=== PATIENT | male | born 1990 | race Caucasian/White ===

== ENCOUNTER 2016-07-30 01:22 | Emergency (ER) | payer MEDICAID, OTHER ==
[~2016-07-30] VITALS: Ht 182.9 cm; Wt 115.0 kg
[~2016-07-30 01:22] MED LIST: CEPH-443; DOXY100C47; LEXAPRO; PSYCH MED; SULF-151
[2016-07-30 01:25] VITALS: Ht 182.9 cm; Wt 115.0 kg
--- NOTE | 2016-07-30 02:01 | ERD ---
ER Documentation Chief Complaint Date/Time DATE: 07/30/16 TIME: 01:57 Chief Complaint cough x 4 days HPI 26-year-old male presents here in emergency department for complaints of cough for 4 days, patient has been having dry cough, does not cough up any phlegm or blood. Patient does not have any shortness of breath or wheezing. Patient did not take any medications to help with symptoms. Patient's family member was sick with the same symptoms. ROS All systems reviewed and are negative except as per history of present illness. Medications Home Meds Reported Medications Doxycycline Hyclate (Doryx) 100 Mg Capsule. 03/20/10 Cephalexin* (Keflex*) 500 Mg Capsule 03/10/10 Sulfamethoxazole/Trimethoprim (Sulfamethoxazole Tmp Ds Tab) 1 Tab Tablet 03/10/10 [Psych Med] No Conflict Check 03/07/10 [Lexapro] No Conflict Check 03/07/10 Allergies Allergies: Coded Allergies: No Known Allergies (Verified Allergy, Mild, 03/20/10) No Known Allergy (Verified Allergy, Mild, 03/20/10) PMhx/Soc Medical and Surgical Hx: pt denies Surgical Hx History of Surgery: No Anesthesia Reaction: No Hx Neurological Disorder: No Hx Respiratory Disorders: No Hx Cardiac Disorders: No Hx Psychiatric Problems: No Hx Miscellaneous Medical Probl: Yes (AUTISM) Hx Alcohol Use: No Hx Substance Use: No Hx Tobacco Use: No Smoking Status: Never smoker FmHx Family History: No coronary disease, No diabetes, No other Physical Exam Vitals Vital Signs Date Time Temp Pulse Resp B/P Pulse Ox O2 Delivery O2 Flow Rate FiO2 07/30/16 01:25 98.2 97 20 136/96 97 Physical Exam GENERAL: The patient is well developed and appropriate for usual state of health, in no apparent distress. CHEST: Clear to auscultation bilaterally. There are no rales, wheezes or rhonchi. HEART: Regular rate and rhythm. No murmurs, clicks, rubs or gallops. No S3 or S4. ABDOMEN: Soft, nontender and nondistended. Good bowel sounds. No rebound or guarding. No gross peritonitis. No gross organomegaly or masses. No Gibson sign or McBurney point tenderness. BACK: No midline or flank tenderness. EXTREMITIES: Equal pulses bilaterally. There is no peripheral clubbing, cyanosis or edema. No focal swelling or erythema. Full range of motion. Grossly neurovascularly intact. NEURO: Alert and oriented. Cranial nerves 2-12 intact. Motor strength in all 4 extremities with 5/5 strength. Sensation grossly intact. Normal speech and gait. SKIN: There is no apparent rash or petechia. The skin is warm and dry. HEMATOLOGIC AND LYMPHATIC: There is no evidence of excessive bruising or lymphedema. No gross cervical, axillary, or inguinal lymphadenopathy. Results 24 hrs PROCEDURE: XR Chest. CLINICAL INDICATION: Cough TECHNIQUE: Portable single view of the chest COMPARISON: None. FINDINGS: Shallow lung inflation accentuates the heart size which does appear slightly enlarged. Pulmonary vascularity is top normal. No definite acute infiltrate, pleural effusion, or overt congestive heart failure. No bony abnormality is seen. IMPRESSION: No definite acute infiltrate. Possible cardiomegaly. Follow-up PA and lateral views are suggested. RPTAT: [facility] Physician Rosalinda Date Time Electronically viewed and signed by Tamika Kaufman Physician on 07/30/2016 03 :16 LE/ CC: KALPESH STARR [employer] Procedures/MDM Medical Decision Making: Patient symptoms are most likely consistent with acute bronchitis, which viral in origin. There is low suspicion for Pneumonia at this time since patients lungs sounds are clear, patient O2 saturation is normal and patient doesnt show any respiratory distress. Patients chest xray doesnt show infiltrates or any other cardiopulmonary emergencies at this time. There is low suspicion for other cardiopulmonary emergencies at this time such as CHF, Pulmonary Embolism, Pneumothorax, Aortic Aneurysm or any other cardiopulmonary emergencies at this time. There is low suspicion for sepsis. Patient appears well and is hemodynamically stable. Fever is controlled with medicines. Disposition: Home. Condition: Stable Prescriptions: Albuterol, guaifenesin DM Zyrtec ibuprofen Instructions: Patient is advised to take medications as prescribed. Patient is advised to rest. Patient advised to increase fluid intake, do humidifier at home and if possible, do salt water gargles. Patient is advised that if symptoms are worse, shortness of breath, uncontrolled fever, stridor, vomiting, worst signs and symptoms to return to emergency department immediately. Otherwise, patient is advised to follow up with primary doctor in 5-7 days. Departure Diagnosis: Primary Impression: Acute bronchitis Bronchitis organism: unspecified organism Qualified Code: J20.9 - Acute bronchitis, unspecified organism Condition: Stable Patient Instructions: Bronchitis, No Antibiotic (Adult) Additional Instructions: Patient is advised to take medications as prescribed. Patient is advised to rest. Patient advised to increase fluid intake, do humidifier at home and if possible, do salt water gargles. Patient is advised that if symptoms are worse, shortness of breath, uncontrolled fever, stridor, vomiting, worst signs and symptoms to return to emergency department immediately. Otherwise, patient is advised to follow up with primary doctor in 5-7 days. KALPESH STARR NP Jul 30, 2016 02:01
--- NOTE | 2016-07-30 03:16 | RADRPT ---
PROCEDURE: XR Chest. CLINICAL INDICATION: Cough TECHNIQUE: Portable single view of the chest COMPARISON: None. FINDINGS: Shallow lung inflation accentuates the heart size which does appear slightly enlarged. Pulmonary va scularity is top normal. No definite acute infiltrate, pleural effusion, or overt congestive heart failure. No bony abnormality is seen. IMPRESSION: No definite acute infiltrate. Possible cardiomegaly. Follow-up PA and lateral views are suggested. RPTAT: [facility] Physician Rosalinda Date Time Electronically viewed and signed by Tamika Kaufman Physician on 07/30/2016 03:16 LE/
[2016-07-30] MEDS ORDERED: ALBU8.5H3 INH (03:26)
[2016-07-30] MEDS ORDERED: GUAI120S26 PO (03:26)
[2016-07-30] MEDS ORDERED: CETI10CA PO (03:26)
[2016-07-30] MEDS ORDERED: IBUP-1542 PO (03:26)
[2016-07-30 03:37] VITALS: BP 132/94; PULSE 95; RESP 20; TEMP 98.2
== END 2016-07-30 03:26 | disposition home or self-care (01) ==
LOC: FTE 01:22
DX: J20.9 Acute bronchitis, unspecified (principal); F84.0 Autistic disorder
CPT/HCPCS: 71010; Z7502